=== PATIENT | male | born 1935 | race Hispanic/Latino ===

== ENCOUNTER → 2017-10-20 | Day surgery (SDC) | payer OTHER, MEDICARE ==
[2017-10-11 13:50] LABS: BASOPHILS # (AUTO) 0.1 (0.0-0.1); BASOPHILS % 0.5 % (0.0-1.0); EOSINOPHILS # (AUTO) 0.1 (0.0-0.4); EOSINOPHILS % 1.4 % (0.0-6.0); HEMATOCRIT 35.7 % (38.2-49.6); HEMOGLOBIN 11.5 g/dL (14.0-18.0); LYMPHOCYTES # (AUTO) 2.4 (1.0-3.2); LYMPHOCYTES % 24.2 % (18.0-39.1); MEAN CORPUSCULAR HEMOGLOBIN 30.5 pg (28-32); MEAN CORPUSCULAR HGB CONC 32.2 g/dL (31-35); MEAN CORPUSCULAR VOLUME 94.7 fL (81-99); MONOCYTES # (AUTO) 0.9 (0.2-0.8); MONOCYTES % 9.2 % (4.4-11.3); NEUTROPHILS # (AUTO) 6.5 (2.1-6.9); NEUTROPHILS % 64.4 % (38.7-80.0); PLATELET COUNT 188 x10e3/uL (140-360); RED BLOOD COUNT 3.77 x10e6/uL (4.3-5.7); RED CELL DISTRIBUTION WIDTH 16.2 % (11.7-14.4)
[2017-10-11 13:56] LABS: INR 1.22; PROTHROMBIN TIME 14.5 seconds (11.9-14.5)
[2017-10-11 14:04] LABS: ALBUMIN/GLOBULIN RATIO 0.7 (0.8-2.0); ANION GAP 13.2 mmol/L (8-16); CALCIUM 8.3 mg/dL (8.4-10.2); CHOL/HDL RATIO 1.7 (3.9-4.7); CREATININE, SERUM 5.03 mg/dL (0.72-1.25); POTASSIUM 4.2 mmol/L (3.5-5.1)
[2017-10-20] VITALS (11 sets, daily range): BP systolic 113–152; BP diastolic 58–84
[~2017-10-20] VITALS: Ht 167.6 cm; Wt 77.1 kg
[~2017-10-20] MED LIST: ASPIRIN CHEW81 MG PO; DIALYVITE TABL1 EACH; FENTANYL CITRATE/PF 100MCG/2 ML INJ ONE; FINASTERIDE5 MG PO; FLOMAX0.4 MG PO; FUROSEMIDE40 MG PO; HEPARIN SOD (PORCINE) 1000 UNIT/ML 30ML ONE; HEPARIN SOD/SOD CHLORIDE 2,000 ML ONE; HYDRALAZINE HCL25 MG PO; IOPAMIDOL 300MG/ML 100 ML INFUS..BTL IV ONE; IOPAMIDOL 370 MG/ML 200 ML INFUS..BTL INJ ONE; LIDOCAINE HCL 2% LOCAL 20 ML VIAL ONE; METOPROLOL SUCC25 MG PO; MIDAZOLAM HCL 2 MG/2 ML VIAL ONE; NORVASC10 MG PO; OXYBUTYNIN CHLOR5 MG PO; PLAVIX75 MG PO; PROPOFOL IV EMULSION 10MG/ML 0 ML ONE; SEVELAMER PO; SIMVASTATIN40 MG PO; SODIUM CHLORIDE 0.9% 250ML 250 ML ONE
--- OUTSIDE RECORDS SUMMARY | 2017-10-20 07:23 | XMS REPORT ---
Author Author [facility] Address Unknown Phone Unavailable Care Team Providers Care Insurance Territory Manager Name Role Phone NAOMY WEINER Unavailable Unavailable Problems This patient has no known problems. Allergies, Adverse Reactions, Alerts This patient has no known allergies or adverse reactions. Medications This patient has no known medications. Results Test Description Test Time Test Comments Text Results Atomic Results Result Comments SPECIAL PROCEDURE IN TITLE CLOSER [place] [address] Patient Name: EPHRAIM SAGE MR #: [id number] : 1935 Age/Sex: 81/M Req #: [id number] [facility] Physician: NAOMY WEINER MD Ordered by: MARILIN TUTTLE DO Report #: [id number] Location: [facility] Room/Bed: [facility] Procedure: [id number] IR/SPECIAL PROCEDURE IN TITLE CLOSER Exam Date: Exam Time: REPORT STATUS: Signed Date and Time: 03/17/2017 Procedure: Tunneled hemodialysis catheter placement winding operator: Dr. Lima Pre- operative diagnosis: End-stage renal disease Post-operative diagnosis: End- stage renal disease Conscious Sedation: Versed 1 mg and Fentanyl 50 mcg. The patient's heart rate and pulse oximetry were continuously monitored by the interventional radiology nurse. Blood pressure was monitored at 5 minute intervals. Additional Medications: Lidocaine 2% for local anesthesia Fluoroscopy time: 1.4 minutes Dose-area Product: 585.8 cGycm2. Contrast used: 0 Estimated blood loss: Minimal Specimens: None Implants: 16 Macanese, 19 cm tip-cuff tunneled hemodialysis catheter Blood products administered: None Condition at completion of procedure: Stable Disposition : Catheter lab recovery area Procedure in detail: Informed consent for the procedure was obtained from the patient after discussion of risks and benefits. The right neck and upper chest was prepped and draped in the standard sterile fashion after the patient was placed in the supine position on the fluoroscopic table. 2% lidocaine was administered into the skin and subcutaneous tissues of the right lower neck for local anesthesia. Then, under continuous sonographic guidance, a 21-gauge micropuncture needle was advanced into the right internal jugular vein. A 0.018 inch wire was advanced centrally under fluoroscopic guidance. The needle was then removed and access was secured with a micropuncture sheath. Intravascular length to the upper right atrium was determined using the microwire, which was then removed along with the inner dilator of the micropuncture sheath. A 0.035 inch Amplatz wire was then advanced through the micropuncture sheath into the inferior vena cava under fluoroscopic guidance. Attention was then turned to the right upper chest. A suitable catheter exit site was determined , approximately 3 fingerbreadths inferior to the clavicle. The skin was marked. 1% lidocaine was epinephrine was used to anesthetize a subcutaneous tract extending from the planned catheter exit site to the venotomy at the right lower neck. A stab incision was made on the right upper chest. Subsequently, the catheter was tunneled from the exit site of the right upper chest to the venotomy at the right lower neck. The retention cuff of the catheter was advanced well into the subcutaneous tunnel. The micropuncture sheath was then removed over the wire and the tract was serially dilated. Finally, a 16.5-Macanese peel-away sheath was advanced over the wire under fluoroscopic guidance. The wire and inner dilator of the sheath were removed and the catheter was advanced through the peel-away sheath, which was then broken and removed. The catheter tip was positioned in the upper right atrium. Each catheter lumen showed good bidirectional flow. Each lumen was then packed with 2000 units of heparin. The catheter was secured at the exit site on the right upper chest with monofilament nylon suture. The venotomy at the right lower neck was closed with tissue adhesive. A sterile dressing was applied. The patient tolerated the procedure well without immediate complication. FINDINGS: Patent right internal jugular vein. IMPRESSION: Successful placement of a 16 Macanese, 19 cm tip- cuff tunneled hemodialysis catheter by a right internal jugular approach. Signed by: Dr. Ashwini Lima M.D. on 03/19/2017 3:19 PM Dictated By: ASHWINI LIMA MD 27 Transcribed By: VERONICA on 03/25/171127 COPY TO: MARILIN TUTTLE DO IR CONSULT [place] [address] Patient Name: EPHRAIM SAGE MR #: [id number] : 1935 Age/Sex: 81/M Req #: [id number] Adm Physician: NAOMY WEINER MD Ordered by: MARILIN TUTTLE DO Report #: [id number] Location: MED/SURG3 Room/Bed: [facility] Procedure: [id number] DX/IR CONSULT Exam Date: Exam Time: REPORT STATUS: Signed Date and Time: 03/17/2017 Procedure: Tunneled hemodialysis catheter placement winding operator: Dr. Lima Pre-operative diagnosis: End- stage renal disease Post-operative diagnosis: End-stage renal disease Conscious Sedation: Versed 1 mg and Fentanyl 50 mcg. The patient's heart rate and pulse oximetry were continuously monitored by the interventional radiology nurse. Blood pressure was monitored at 5 minute intervals. Additional Medications: Lidocaine 2% for local anesthesia Fluoroscopy time: 1.4 minutes Dose-area Product: 585.8 cGycm2. Contrast used: 0 Estimated blood loss: Minimal Specimens: None Implants: 16 Macanese, 19 cm tip -cuff tunneled hemodialysis catheter Blood products administered: None Condition at completion of procedure: Stable Disposition: Catheter lab recovery area Procedure in detail: Informed consent for the procedure was obtained from the patient after discussion of risks and benefits. The right neck and upper chest was prepped and draped in the standard sterile fashion after the patient was placed in the supine position on the fluoroscopic table. 2% lidocaine was administered into the skin and subcutaneous tissues of the right lower neck for local anesthesia. Then, under continuous sonographic guidance, a 21-gauge micropuncture needle was advanced into the right internal jugular vein. A 0.018 inch wire was advanced centrally under fluoroscopic guidance. The needle was then removed and access was secured with a micropuncture sheath. Intravascular length to the upper right atrium was determined using the microwire, which was then removed along with the inner dilator of the micropuncture sheath. A 0.035 inch Amplatz wire was then advanced through the micropuncture sheath into the inferior vena cava under fluoroscopic guidance. Attention was then turned to the right upper chest. A suitable catheter exit site was determined , approximately 3 fingerbreadths inferior to the clavicle. The skin was marked. 1% lidocaine was epinephrine was used to anesthetize a subcutaneous tract extending from the planned catheter exit site to the venotomy at the right lower neck. A stab incision was made on the right upper chest. Subsequently, the catheter was tunneled from the exit site of the right upper chest to the venotomy at the right lower neck. The retention cuff of the catheter was advanced well into the subcutaneous tunnel. The micropuncture sheath was then removed over the wire and the tract was serially dilated. Finally, a 16.5-Macanese peel-away sheath was advanced over the wire under fluoroscopic guidance. The wire and inner dilator of the sheath were removed and the catheter was advanced through the peel-away sheath, which was then broken and removed. The catheter tip was positioned in the upper right atrium. Each catheter lumen showed good bidirectional flow. Each lumen was then packed with 2000 units of heparin. The catheter was secured at the exit site on the right upper chest with monofilament nylon suture. The venotomy at the right lower neck was closed with tissue adhesive. A sterile dressing was applied. The patient tolerated the procedure well without immediate complication. FINDINGS: Patent right internal jugular vein. IMPRESSION: Successful placement of a 16 Macanese, 19 cm tip- cuff tunneled hemodialysis catheter by a right internal jugular approach. Signed by: Dr. Ashwini Lima M.D. on 03/19/2017 3:19 PM Dictated By: ASHWINI LIMA MD 27 Transcribed By: VERONICA on 03/25/171127 COPY TO: MARILIN TUTTLE DO US RENAL RETROPERITONEAL COMP [place] [address] Patient Name: EPHRAIM SAGE MR #: [id number] : 1935 Age/Sex: 81/M Req #: [id number] [facility] Physician: NAOMY WEINER MD Ordered by: RAJAN BAUTISTA MD Report #: [id number] Location: [facility] Room/Bed: [facility] Procedure: [id number] US/US RENAL RETROPERITONEAL COMP Exam Date: Exam Time: REPORT STATUS: Signed PROCEDURE: US RETROPERITONEAL ( KIDNEY ). COMPARISON: None. INDICATIONS: RENAL FAILURE, UTI TECHNIQUE: Centeno-scale and color sonographic images of the bilateral kidneys and bladder where obtained in transverse and longitudinal planes. FINDINGS: RIGHT KIDNEY: 9.1 cm in length, cortical thickness 0.8 cm Cysts: None Solid masses: None Stones: None Hydronephrosis: None Echogenicity: Increased renal cortical echogenicity. LEFT KIDNEY: 10.3 cm in length, cortical thickness 1.3 cm. Cysts: None Solid masses: None Stones: None Hydronephrosis: None Echogenicity: Increased renal cortical echogenicity. Bladder: Echogenic debris within the dependent portion of the urinary bladder. Prostate: 4.5 x 3.5 x 3.7 cm. CONCLUSION: Increased renal cortical echogenicity compatible with medical renal disease. No hydronephrosis. Nonspecific echogenic debris within the dependent portion of the urinary bladder. Dictated by: Ashwini Lima M.D. on 03/15/2017 at 16:27 Electronically approved by: Ashwini Lima M.D. on 03/15/2017 at 16 :27 Dictated By: ASHWINI LIMA MD 26 Transcribed By: BRYANNA on 03/15/171626 COPY TO: RAJAN BAUTISTA MD CT BRAIN WO [place] [address] Patient Name: EPHRAIM SAGE MR #: [id number] : 1935 Age/Sex: 81/M Req #: [id number] Adm Physician: Ordered by: LEILA COBB MD Report #: [id number] Location: ER Room/Bed: Procedure: [id number] CT/CT BRAIN WO Exam Date: Exam Time: REPORT STATUS: Signed Exam: Head CT without contrast History: Weakness x2 days, chronic kidney disease. Comparison studies: None Technique: Axial images were obtained from the skull base to the vertex. Coronal and sagittal images reconstructed from the axial data. Intravenous contrast: None Findings: Scalp: No abnormalities. Bones : No fractures, blastic or lytic lesions. Brain sulci: Moderately prominent. Ventricles: Moderate compensatory dilatation. No hydrocephalus. Extra-axial spaces: Incidental prominent extra-axial space along the anterior left frontal convexity of CSF density is most likely an incidental arachnoid cyst. No other mass or fluid collection. Parenchyma: No mass, acute hemorrhage or acute cortical vascular insults. Ill-defined and confluent hypodensities in the supratentorial white matter are most compatible with chronic small vessel ischemic changes. There are small chronic appearing lacunar infarcts in the left thalamus and left richard. Sellar/suprasellar region: No abnormalities. Craniocervical junction: Patent foramen magnum. No Chiari one malformation. Incidental findings: Calcifications in the carotid siphons, intradural vertebral arteries and distal ECA arteries within the scalp which can be seen in the context of chronic kidney disease. Right lens replacement related to previous cataract surgery. IMPRESSION: No mass, acute hemorrhage or acute cortical vascular insults. Chronic findings: 1. Moderate generalized volume loss. 2. Moderate chronic small vessel ischemic changes. 3. 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 Signed by: Dr. Ashwini Rodriguez M.D. on 03/14/2017 2:02 PM Dictated By: ASHWINI RODRIGUEZ MD 01 Transcribed By: VERONICA on 03/14/171401 COPY TO: LEILA COBB MD CHEST SINGLE (PORTABLE) [place] [address] Patient Name: EPHRAIM SAGE MR #: [id number] : 1935 Age/Sex: 81/M Req #: [id number] Adm Physician: Ordered by: LEILA COBB MD Report #: [id number] Location: ER Room/Bed: Procedure: [id number] DX/CHEST SINGLE (PORTABLE) Exam Date: 03/14/17 Exam Time: 1345 REPORT STATUS: Signed EXAMINATION: Chest, CHEST SINGLE (PORTABLE) INDICATION: Chest pain COMPARISON : Chest 2 views 10/24/2007 FINDINGS: LINES: None. Heart : Normal cardiac silhouette. Vascular: The pulmonary vasculature is within normal limits. Atherosclerotic calcifications of the aortic arch. Mediastinum: No mediastinal, hilar, or axillary mass or lymphadenopathy. Lungs: No parenchymal mass. No focal consolidation. Bibasilar atelectasis. Pleura: No pleural effusion. No pneumothorax. Bones: No acute osseous abnormality. Degenerative changes of the thoracic spine. Soft tissues: Normal. Impression: No acute radiographic abnormality. Signed by: Dr. Eleazar English M.D. on 03/14/2017 2:09 PM Dictated By: ELEAZAR ENGLISH MD 140 Transcribed By: VERONICA on 03/14/17 1408 COPY TO: LEILA CBOB MD
--- NOTE | 2017-10-22 09:15 | Operative Report ---
DATE OF PROCEDURE: October 20, 2017 PROCEDURES PERFORMED 1. Left heart catheterization. 2. Selective coronary angiography times 2. 3. Abdominal aortogram. 4. Selective lower extremity angiography. 5. Left superficial femoral artery to proximal popliteal drug-eluting balloon angioplasty. 6. Left peroneal artery percutaneous transluminal angioplasty. 7. Right common femoral artery 6-Bermudian Angio-Seal closure. PROCEDURE INDICATIONS: CAD, chest pain, abnormal stress test, life-limiting claudication and abnormal Doppler ultrasound concerning for significant peripheral arterial disease. PROCEDURE COMPLICATIONS: None. ESTIMATED BLOOD LOSS: Less than 15 mL. PROCEDURE SUMMARY: After consent was obtained, the patient was prepped and draped in a sterile fashion. The right femoral site was locally infiltrated with 2% lidocaine. Access was obtained using micropuncture kit, and a short 6-Bermudian sheath was placed. All catheters were railed over a leading wire. A 6-Bermudian JL4, JR4, and pigtail catheter were used for engagement of the left main, right coronary artery, and to cross the aortic valve for hemodynamic measurements. The pigtail catheter was also used for abdominal aortogram. Selective lower extremity angiography was then performed to the left lower extremity with 3rd-order catheter placement from the right common femoral artery to the left common femoral artery with advancement of 6-Bermudian sheath. Additional 3rd-order catheter placement from the right common femoral artery to the left popliteal artery was also performed to better visualize the [id number] vessels. Drug-eluting balloon angioplasty of the left SFA was performed as follows: Lutonix 5.0 x 150 and 5.0 x 60 drug-eluting balloon inflations were performed, each over 2 minutes to 12 atmospheres, across the target lesions of the left SFA to popliteal. The left peroneal artery was occluded 100% in the mid portion with distal reconstitution. This was crossed successfully with a Whisper wire and ballooned with a 2.5 x 150 Ultraverse balloon to 16 atmospheres. Final angiography reveals in the treated area less than 10% residual stenosis, no flow-limiting dissections, no perforations, JULES-3 flow, and 2-vessel runoff via the left posterior tibial and left peroneal artery down to the ankle/foot. The left anterior tibial artery is chronically occluded 100% with 4-vessel outflow. ANGIOGRAPHIC FINDINGS: The left main has 30% distal stenosis, and the arteries overall are heavily calcified. The LAD gives a diagonal that is 100% occluded, which is a chronic total occlusion. The mid LAD has 50% tandem lesions times 2. The apical LAD has a focal area of 70% stenosis. At this level, it is less than 2 mm in caliber. The ramus intermedius arises from the left main. It is small to medium in caliber and has ostial 50% to 60% stenosis. The circumflex has 1st obtuse marginal with 70% distal stenosis and gives a couple of left posterolateral branches and a left PDA. This is a dominant circumflex. The right coronary artery is nondominant, small in caliber, has 50% proximal stenosis. After giving an RV marginal, it has additional 60% stenosis prior to giving 2 additional RV marginals. The LV pressure was 129/5 with end-diastolic pressure of 14. Aortic pressure was 129/43. The LV-gram reveals left ventricular systolic function to be mildly impaired with segmental akinesis of the mid to apical inferior segment of LV myocardium. LVEF was estimated at 40% to 45%. The infrarenal abdominal aorta and iliac vessels, common femoral and profunda femoris have luminal irregularities. The right SFA has 70% focal stenosis. The right popliteal artery has 2 areas of tandem 30% stenosis. The right TP trunk has 50% focal stenosis. The right anterior tibial artery has 100% occlusion. The right peroneal artery is overall small in caliber and diffusely diseased at 70%. The right posterior tibial artery has a focal area of 70% stenosis at the ankle level. Other than the SFA, the pyrxu-ces-azee vessels are not adequate targets for revascularization. The left SFA has diffuse area of 70% stenosis, which was treated with residual less than 10% stenosis post intervention. The popliteal artery has an area of 70% stenosis, again also treated with less than 10% residual stenosis post intervention. Preintervention, there was a pullback gradient of 30 mmHg across the lesions. The left anterior tibial artery is 100% occluded from the mid to distal with poor runoff. The left TP trunk has less than 30% stenosis. The left peroneal artery had 100% occlusion preintervention with distal reconstitution. Post intervention, less than 10% residual stenosis. The left peroneal artery has at the ankle level focal areas of 70% stenosis. At this level, the artery is small in caliber. CONCLUSION: Successful revascularization of the left peroneal artery with the left femoral-popliteal segment revascularization using drug-eluting balloons. RECOMMENDATIONS 1. Aggressive medical therapy for CAD and CHF as well as PAD. 2. Aspirin and Plavix. 3. Bed rest post Angio-Seal closure. 4. Judicious use of IV fluids. 5. Follow up in the office in 2 weeks post discharge later today. Job#: [id number]
== END | disposition home or self-care (01) ==
LOC: CATH LAB 07:21
PROVIDERS: ATTEND Internal Medicine Cardiovascular Disease
DX: I25.10 Atherosclerotic heart disease of native coronary artery without angina pectoris (principal); I25.82 Chronic total occlusion of coronary artery; I70.298 Other atherosclerosis of native arteries of extremities, other extremity; I70.92 Chronic total occlusion of artery of the extremities; R94.39 Abnormal result of other cardiovascular function study; I50.9 Heart failure, unspecified; Z01.810 Encounter for preprocedural cardiovascular examination; Z01.812 Encounter for preprocedural laboratory examination
CPT/HCPCS: 36415; 37224; 37228; 80053; 80061; 85025; 85610; 93005; 93458; C1725 ×2; C1769 ×2; C1887; C2623; J1644; J2001; J2250; J7050; Q9967 ×2; 36140; 37232; 75630; 75710; 77002; 93452